=== PATIENT | female | born 2000 | race Caucasian/White ===

== ENCOUNTER 2023-08-06 00:23 | Emergency (ER) | payer OTHER ==
[~2023-08-06] VITALS: Ht 160 cm; Wt 81.0 kg
[2023-08-06 00:42] VITALS: TEMP 98.1; O2SAT 100
[2023-08-06 02:36] VITALS: BP 136/79; PULSE 83; RESP 12
[2023-08-06] MEDS: KETOROLAC 30MG/ML VIAL IM ONE (02:36)
[2023-08-06 03:41] LABS: HCG SCREEN NEGATIVE
[2023-08-06] MEDS ORDERED: IBUP-2029 MT (06:31)
== END 2023-08-06 03:58 | disposition home or self-care (01) ==
LOC: ER 00:23
DX: S13.4XXA Sprain of ligaments of cervical spine, initial encounter (principal); M25.572 Pain in left ankle and joints of left foot; V49.9XXA Car occupant (driver) (passenger) injured in unspecified traffic accident, initial encounter; Y93.89 Activity, other specified; Y92.89 Other specified places as the place of occurrence of the external cause; Y99.8 Other external cause status
CPT/HCPCS: 99284; 71045; 84703; 73610; 73630; 96372; J1885